=== PATIENT | male | born 1965 | race Caucasian/White ===

== ENCOUNTER 2016-03-23 08:17 | Outpatient (CLI) | payer OTHER ==
[2016-03-23 08:47] LABS: #Basophils 0.1 thou/uL (0.0-0.2); #Eosinphils 0.5 thou/uL (0.0-0.7); #Lymphocytes 2.3 thou/uL (1.20-3.40); #Monocytes 0.8 thou/uL (0.11-0.59); #Neutrophils 7.6 thou/uL (1.40-6.50); %Basophils 1.1 % (0.0-1.0); %Eosinophils 4.5 % (0.0-10.0); %Monocytes 7.3 % (0.0-10.0); Hemoglobin 9.9 g/dL (14.0-18.0); Mean Corpuscular HGB CONC 33.8 g/dL (32.0-36.0); Mean Corpuscular Hemoglobin 30.7 pg (27.0-31.0); Mean Corpuscular Volume 91.1 fl (80.0-94.0); Mean Platelet Volume 7.9 fL (7.4-10.4); Platelet Count 229 thou/uL (130-400); RBC Distribution Width 12.9 % (11.5-14.5); Red Blood Cell (RBC) Count 3.24 mill/uL (4.70-6.10); White Blood Cell (WBC) Count 11.3 thou/uL (4.8-10.8)
[2016-03-23 09:17] LABS: Anion Gap 19 mmol/L (10-20); BUN (Urea Nitrogen) 61 mg/dL (8.4-25.7); Calc. Creatinine Clearance 0 mL/min (70-130); Calcium 10.1 mg/dL (7.8-10.44); Carbon Dioxide 21 mmol/L (22-29); Chloride 107 mmol/L (98-107); Estimated GFR-MDRD 10; Glucose 90 mg/dL (70-105); Potassium 5.1 mmol/L (3.5-5.1); Sodium 142 mmol/L (136-145)
== END 2016-03-23 08:18 | disposition home or self-care (01) ==
LOC: MADLAB 08:17
PROVIDERS: ATTEND Internal Medicine Nephrology
DX: N18.5 Chronic kidney disease, stage 5 (principal)
CPT/HCPCS: 36415; 80048; 85025

== ENCOUNTER 2016-05-17 07:50 | Outpatient (CLI) | payer OTHER ==
[2016-05-17 17:45] LABS: HBSAB Concentration 0.87 mIU/mL; HBSAg Index 0.19 S/CO (0-0.99); Hep B Core Total Ab Non-Reactive (NonReactive); Hep B Core Total Index 0.09 S/CO (0-0.79); Hep B Surf AB Non-Reactive (NonReactive); Hep B Surf Ag Non-Reactive S/CO (NonReactive); Hep C IgG Ab Non-Reactive (NonReactive); Hep C Index 0.08 S/CO (0-0.79)
== END 2016-05-17 07:51 | disposition home or self-care (01) ==
LOC: MADLAB 07:50
PROVIDERS: ATTEND Internal Medicine Nephrology
DX: N18.5 Chronic kidney disease, stage 5 (principal)
CPT/HCPCS: 36415; 86704; 86706; 86803; 87340

== ENCOUNTER 2017-12-28 15:35 | Emergency (ER) | payer MEDICARE ==
[2017-12-28] MEDS ORDERED: cefTRIAXone\\ROCEPHIN 1 GM VIAL ONE (16:03)
[2017-12-28] MEDS ORDERED: HYDROcodone/Acetaminophen 10/325 mg Tablet ONE (16:03)
[2017-12-28] MEDS ORDERED: Adacel (T-DAP) 0.5 ML VIAL ONE (16:03)
--- NOTE | 2017-12-28 17:19 | RAD ---
TWO VIEWS OF THE RIGHT SMALL AND RING FINGERS: 12/28/17 HISTORY: Caught fourth and fifth digits in a saw. FINDINGS: Two views of the right ring and small fingers shows absence of the distal aspect of the ring and smal l finger. There are bony fragments and comminuted fractures of the distal phalanges of these fingers. IMPRESSION: Amputation of the tip of the ring finger and small finger through the distal phalanx. POS: [facility]
[2017-12-28] MEDS ORDERED: Sodium Chloride Irrig Solution 250 ML BOT ONE (20:30)
== END 2017-12-28 17:05 | disposition home or self-care (01) ==
LOC: MADERS 15:35
DX: S68.124A Partial traumatic metacarpophalangeal amputation of right ring finger, initial encounter (principal); S68.126A Partial traumatic metacarpophalangeal amputation of right little finger, initial encounter; Z23 Encounter for immunization; I12.0 Hypertensive chronic kidney disease with stage 5 chronic kidney disease or end stage renal disease; N18.6 End stage renal disease; Z99.2 Dependence on renal dialysis; M10.9 Gout, unspecified; D64.9 Anemia, unspecified; Z79.899 Other long term (current) drug therapy; W27.8XXA Contact with other nonpowered hand tool, initial encounter
CPT/HCPCS: 11044; 90471; 90715; 96372; J0696